=== PATIENT | male | born 1970 | race Asian ===

== ENCOUNTER 2020-08-08 17:28 | Inpatient (IN) | payer MEDICAID ==
[~2020-08-08] VITALS: Ht 165.1 cm; Wt 66.2 kg
[2020-08-08] MEDS ORDERED: LISI-660 PO (18:39)
[2020-08-08] MEDS ORDERED: METF-960 PO (18:39)
[2020-08-08 19:11] LABS: GLUCOSE,POINT OF CARE 177 MG/DL (70-110)
[2020-08-08 19:16] LABS: BASOPHILS % (AUTO) 0.4 % (0.0-2.0); EOSINOPHILS % (AUTO) 0.6 % (1.0-6.0); HEMATOCRIT 45.4 % (41-53); HEMOGLOBIN 15.6 g/dL (13.5-17.5); LYMPHOCYTES # (AUTO) 1.6 K/uL (1.0-4.8); MEAN CORPUSCULAR HEMOGLOBIN 31.9 pg (26.0-34.0); MEAN CORPUSCULAR HGB CONC 34.3 G/dL (31.0-37.0); MEAN CORPUSCULAR VOLUME 93 fL (80-100); MONOCYTES # (AUTO) 0.9 K/uL (0.1-1.0); MONOCYTES % (AUTO) 8.9 % (2.0-9.0); NEUTROPHILS # (AUTO) 7.3 K/uL (1.8-7.7); NEUTROPHILS % (AUTO) 74.1 % (40.0-70.0); PLATELET COUNT (AUTO) 385 K/uL (150-450); RED BLOOD CELL COUNT(AUTO) 4.88 MIL/uL (4.50-5.90); RED CELL DISTRIBUTION WIDTH 14.5 % (11.5-14.5)
[2020-08-08 19:32] LABS: ANION GAP 10 mmol/L (8-16); CALCIUM, TOTAL 10.1 mg/dL (8.8-10.5); CARBON DIOXIDE 29 mmol/L (22-29); CHLORIDE 97 mmol/L (98-107); CREATININE 0.97 mg/dL (0.60-1.30); GLOMERULAR FILTR. RATE CALC > 60 mL/min (>60); GLUCOSE,RANDOM 182 mg/dL (70-110); POTASSIUM 3.1 mmol/L (3.5-5.1); SODIUM SERUM 136 mmol/L (136-145); UREA NITROGEN, BLOOD 20 mg/dL (7-18)
[2020-08-08 19:38] LABS: ALANINE AMINOTRANSFERASE 26 U/L (12-78); ALBUMIN 4.8 g/dL (3.4-5.0); ALKALINE PHOSPHATASE 70 U/L (46-116); ASPARTATE AMINOTRANSFERASE 18 U/L (15-37); BILIRUBIN,TOTAL 1.1 mg/dL (0.1-1.0)
[2020-08-08] MEDS ORDERED: ZOLPIDEM TARTRATE 10 MG TABLET PO PRN (20:00)
[2020-08-08] MEDS ORDERED: POTASSIUM CHLORIDE 20 MEQ ER TABLET PO ONE (20:00)
[2020-08-08] MEDS ORDERED: OLANZapine 5 MG RAPDIS TABLET PO PRN (20:00)
[2020-08-08 20:58] LABS: COVID AG,FIA SOURCE NASOPHARYNGEAL
[2020-08-09] MEDS: LORazepam 2 MG TABLET PO PRN ×3 (02:47→21:19)
[2020-08-09 02:53] LABS: GLUCOMETER DEV NAME(LOC) BV3S.; GLUCOSE,POINT OF CARE 168 MG/DL (70-110)
[2020-08-09 03:12] VITALS: BP 156/94
[2020-08-09] MEDS ORDERED: INFLUENZA VIRUS VACCINE QVS 2020-21 (6MO+)/PF 60 MCG/0.5 ML SYRINGE IM ONE (03:15)
[2020-08-09 07:56] LABS: CHOL/HDL RATIO 4.3 (4.2-7.3)
[2020-08-09 08:05] VITALS: BP 128/79
[2020-08-09 16:05] VITALS: BP 138/95
[2020-08-09] MEDS ORDERED: GLUCAGON,HUMAN RECOMBINANT 1 MG VIAL IM PRN (18:30)
[2020-08-09] MEDS ORDERED: OLANZapine 10 MG TABLET PO SCH (21:00)
[2020-08-09] MEDS: INSULIN LISPRO 100 UNITS/ML SQ PRN (21:35)
[2020-08-09 21:45] LABS: GLUCOMETER DEV NAME(LOC) BV3N.; GLUCOSE,POINT OF CARE 330 MG/DL (70-110)
[2020-08-10 03:33] VITALS: BP 123/78
[2020-08-10 06:17] LABS: GLUCOMETER DEV NAME(LOC) BV3N.; GLUCOSE,POINT OF CARE 198 MG/DL (70-110)
[2020-08-10] MEDS: MetFORMIN HCL 500 MG TABLET PO SCH ×3 (06:27→16:35)
[2020-08-10] MEDS: INSULIN LISPRO 100 UNITS/ML SQ PRN ×3 (06:30→17:04)
[2020-08-10 08:02] LABS: ANION GAP 9 mmol/L (8-16); CALCIUM, TOTAL 9.4 mg/dL (8.8-10.5); CARBON DIOXIDE 27 mmol/L (22-29); CHLORIDE 102 mmol/L (98-107); GLOMERULAR FILTR. RATE CALC > 60 mL/min (>60); GLUCOSE,RANDOM 234 mg/dL (70-110); POTASSIUM 3.2 mmol/L (3.5-5.1); SODIUM SERUM 138 mmol/L (136-145); UREA NITROGEN, BLOOD 16 mg/dL (7-18)
[2020-08-10] MEDS ORDERED: POTASSIUM CHLORIDE 20 MEQ ER TABLET PO ONE (08:15)
[2020-08-10] MEDS: DIVALPROEX SODIUM 500 MG ER TABLET PO SCH (08:51)
[2020-08-10] MEDS: LORazepam 2 MG TABLET PO PRN (08:51)
[2020-08-10] MEDS: LISINOPRIL 5 MG TABLET PO SCH (09:20)
[2020-08-10 09:54] VITALS: BP 127/73
[2020-08-10 11:45] LABS: GLUCOMETER DEV NAME(LOC) BV3N.; GLUCOSE,POINT OF CARE 160 MG/DL (70-110)
[2020-08-10] MEDS ORDERED: MAGNESIUM HYDROXIDE SUSPENSION 30 ML UDCUP PO PRN (14:00)
[2020-08-10] MEDS ORDERED: MAG HYDROX/AL HYDROX/SIMETH ES 30 ML SUSPENSION UDCUP PO PRN (14:00)
[2020-08-10] MEDS ORDERED: HydrOXYzine PAMOATE 50 MG CAPSULE PO PRN (14:00)
[2020-08-10] MEDS ORDERED: GuaiFENesin/D-METHORPHAN [SUGAR-FREE] 200-20MG/10 ML SYRUP UDCUP PO PRN (14:00)
[2020-08-10] MEDS ORDERED: TUBERCULIN, PURIFIED PROTEIN DERIVATIVE 5 TU/0.1 ML SYRINGE ID ONE (14:00)
[2020-08-10] MEDS ORDERED: LOPERAMIDE HCL 2 MG CAPSULE PO PRN (14:00)
[2020-08-10] MEDS ORDERED: PROMETHAZINE HCL 25 MG TABLET PO PRN (14:00)
[2020-08-10] MEDS ORDERED: ACETAMINOPHEN 325 MG TABLET PO PRN (14:00)
[2020-08-10 16:16] VITALS: BP 134/75
[2020-08-10] MEDS: THIAMINE 100 MG TABLET PO SCH (16:35)
[2020-08-10 16:47] LABS: GLUCOMETER DEV NAME(LOC) BV3N.; GLUCOSE,POINT OF CARE 151 MG/DL (70-110)
[2020-08-10] MEDS: OLANZapine 7.5 MG TABLET PO SCH (20:30)
[2020-08-10 21:13] LABS: GLUCOMETER DEV NAME(LOC) BV3N.; GLUCOSE,POINT OF CARE 140 MG/DL (70-110)
[2020-08-11 05:31] VITALS: BP 128/81
[2020-08-11 06:21] LABS: GLUCOMETER DEV NAME(LOC) BV3N.; GLUCOSE,POINT OF CARE 179 MG/DL (70-110)
[2020-08-11] MEDS: MetFORMIN HCL 500 MG TABLET PO SCH ×3 (06:31→16:21)
[2020-08-11] MEDS: INSULIN LISPRO 100 UNITS/ML SQ PRN ×4 (06:35→21:06)
[2020-08-11 08:08] VITALS: BP 130/78
[2020-08-11] MEDS: FLUoxetine HCL 10 MG CAPSULE PO SCH (08:49)
[2020-08-11] MEDS: DIVALPROEX SODIUM 500 MG ER TABLET PO SCH (08:49)
[2020-08-11] MEDS: OMEGA-3/DHA/EPA/FISH OIL 1,000 MG CAPSULE PO SCH (08:49)
[2020-08-11] MEDS: FOLIC ACID 1 MG TABLET PO SCH (08:50)
[2020-08-11] MEDS: LISINOPRIL 5 MG TABLET PO SCH (08:50)
[2020-08-11] MEDS: MULTIVITAMINS WITH MINERALS, THERAPEUTIC TABLET PO SCH (08:50)
[2020-08-11] MEDS: THIAMINE 100 MG TABLET PO SCH ×2 (08:50→16:21)
[2020-08-11] MEDS: NALTREXONE HCL 50 MG TABLET PO SCH (08:50)
[2020-08-11 11:11] LABS: GLUCOMETER DEV NAME(LOC) BV3N.; GLUCOSE,POINT OF CARE 166 MG/DL (70-110)
[2020-08-11] MEDS: LORazepam 2 MG TABLET PO PRN (16:21)
[2020-08-11 16:24] VITALS: BP 159/79
[2020-08-11] MEDS: OLANZapine 7.5 MG TABLET PO SCH (20:54)
[2020-08-11 21:11] LABS: GLUCOMETER DEV NAME(LOC) BV3N.; GLUCOSE,POINT OF CARE 167 MG/DL (70-110)
[2020-08-11 21:11] LABS: GLUCOMETER DEV NAME(LOC) BV3N.; GLUCOSE,POINT OF CARE 304 MG/DL (70-110)
[2020-08-12 04:02] VITALS: BP 128/80
[2020-08-12 06:24] LABS: GLUCOMETER DEV NAME(LOC) BV3N.; GLUCOSE,POINT OF CARE 169 MG/DL (70-110)
[2020-08-12] MEDS: MetFORMIN HCL 500 MG TABLET PO SCH ×3 (06:29→16:22)
[2020-08-12] MEDS: INSULIN LISPRO 100 UNITS/ML SQ PRN ×4 (06:35→20:56)
[2020-08-12 08:08] VITALS: BP 156/81
[2020-08-12] MEDS: DIVALPROEX SODIUM 500 MG ER TABLET PO SCH (08:20)
[2020-08-12] MEDS: OMEGA-3/DHA/EPA/FISH OIL 1,000 MG CAPSULE PO SCH (08:20)
[2020-08-12] MEDS: FOLIC ACID 1 MG TABLET PO SCH (08:20)
[2020-08-12] MEDS: FLUoxetine HCL 10 MG CAPSULE PO SCH (08:20)
[2020-08-12] MEDS: LISINOPRIL 5 MG TABLET PO SCH (08:20)
[2020-08-12] MEDS: MULTIVITAMINS WITH MINERALS, THERAPEUTIC TABLET PO SCH (08:20)
[2020-08-12] MEDS: NALTREXONE HCL 50 MG TABLET PO SCH (08:20)
[2020-08-12] MEDS: THIAMINE 100 MG TABLET PO SCH ×2 (08:20→16:22)
[2020-08-12 16:19] VITALS: BP 162/90
[2020-08-12] MEDS: LORazepam 2 MG TABLET PO PRN (16:22)
[2020-08-12 17:02] LABS: GLUCOMETER DEV NAME(LOC) BV3N.; GLUCOSE,POINT OF CARE 302 MG/DL (70-110)
[2020-08-12] MEDS ORDERED: CloNIDine HCL 0.1 MG TABLET PO PRN (18:15)
[2020-08-12] MEDS: OLANZapine 7.5 MG TABLET PO SCH (20:50)
[2020-08-12 21:10] LABS: GLUCOMETER DEV NAME(LOC) BV3N.; GLUCOSE,POINT OF CARE 209 MG/DL (70-110)
[2020-08-12 22:03] VITALS: BP 141/65
[2020-08-13 06:11] VITALS: BP 135/68
[2020-08-13 06:17] LABS: GLUCOMETER DEV NAME(LOC) BV3N.; GLUCOSE,POINT OF CARE 184 MG/DL (70-110)
[2020-08-13] MEDS: INSULIN LISPRO 100 UNITS/ML SQ PRN ×2 (06:18→11:12)
[2020-08-13] MEDS ORDERED: MetFORMIN HCL 500 MG TABLET PO SCH ×2 (07:00→09:00)
[2020-08-13 08:08] VITALS: BP 164/84
[2020-08-13] MEDS ORDERED: NALT50TA PO (08:14)
[2020-08-13] MEDS ORDERED: DIVA-80 PO (08:14)
[2020-08-13] MEDS ORDERED: OMEG-135 PO (08:14)
[2020-08-13] MEDS ORDERED: PROZ10 PO (08:14)
[2020-08-13] MEDS ORDERED: OLAN7.5T9 PO (08:14)
[2020-08-13] MEDS: FOLIC ACID 1 MG TABLET PO SCH (08:43)
[2020-08-13] MEDS: DIVALPROEX SODIUM 500 MG ER TABLET PO SCH (08:43)
[2020-08-13] MEDS: THIAMINE 100 MG TABLET PO SCH (08:43)
[2020-08-13] MEDS: OMEGA-3/DHA/EPA/FISH OIL 1,000 MG CAPSULE PO SCH (08:43)
[2020-08-13] MEDS: NALTREXONE HCL 50 MG TABLET PO SCH (08:43)
[2020-08-13] MEDS: FLUoxetine HCL 10 MG CAPSULE PO SCH (08:43)
[2020-08-13] MEDS: MULTIVITAMINS WITH MINERALS, THERAPEUTIC TABLET PO SCH (08:43)
[2020-08-13] MEDS ORDERED: LISINOPRIL 20 MG TABLET PO SCH (09:00)
[2020-08-13 11:18] LABS: GLUCOMETER DEV NAME(LOC) BV3N.; GLUCOSE,POINT OF CARE 187 MG/DL (70-110)
== END 2020-08-13 12:30 | disposition home or self-care (01) | DRG 750 ==
LOC: EMS 17:28 → B3A 20:00
PROVIDERS: ADMIT Psychiatry & Neurology Psychiatry; ATTEND Psychiatry & Neurology Psychiatry
DX: F25.0 Schizoaffective disorder, bipolar type (principal); E11.9 Type 2 diabetes mellitus without complications; E78.1 Pure hyperglyceridemia; I10 Essential (primary) hypertension; E87.6 Hypokalemia; F15.20 Other stimulant dependence, uncomplicated; Z20.828 Contact with and (suspected) exposure to other viral communicable diseases; Z81.8 Family history of other mental and behavioral disorders; Z91.19 Patient's noncompliance with other medical treatment and regimen; Z28.21 Immunization not carried out because of patient refusal
CPT/HCPCS: 83036; 84132; 87426; 90686; 93005; G0480